=== PATIENT | male | born 1975 | race Caucasian/White ===

== ENCOUNTER 2016-06-30 00:15 | Emergency (ER) | payer BC, OTHER ==
[~2016-06-30] VITALS: Ht 177.8 cm; Wt 81.7 kg
[2016-06-30 00:36] LABS: URINE BILIRUBIN NEGATIVE (Negative); URINE BLOOD NEGATIVE (Negative); URINE COLOR YELLOW; URINE GLUCOSE-RANDOM* NEGATIVE (Negative); URINE KETONES TRACE (Negative); URINE LEUKOCYTES-REFLEX NEGATIVE (Negative); URINE PROTEIN (DIPSTICK) NEGATIVE (Negative); URINE SPECIFIC GRAVITY >= 1.030 (1.003-1.035); URINE UROBILINOGEN 0.2 E.U./dl (0.2-1.0)
[2016-06-30 00:38] LABS: ABSOLUTE NEUTROPHILS 9.4 thou/uL (1.4-8.2); BASOPHILS 0.2 % (0.0-2.0); EOSINOPHILS 0.7 % (0.0-3.0); HEMOGLOBIN 14.1 gm/dL (14.0-18.0); LYMPHOCYTES 18.2 % (24.0-44.0); MCH 29.7 pg (26.0-34.0); MCHC 33.7 % (28.0-37.0); MCV 88.2 fL (80.0-100.0); MONOCYTES 7.7 % (1.0-8.0); PLATELET COUNT 251 thou/uL (150-400); POLYS 73.2 % (36.0-66.0); RBC 4.76 mil/uL (4.50-6.00); RDW 13.2 % (10.5-14.5); WBC 12.9 thou/uL (4.0-11.0)
[2016-06-30 00:42] LABS: CALCIUM 9.7 mg/dL (8.5-10.1); CREATININE 0.9 mg/dL (0.6-1.3)
[2016-06-30 00:50] LABS: MANUAL DIFF NO
[2016-06-30 00:51] LABS: ALBUMIN 4.1 g/dL (3.4-5.0); TOTAL BILIRUBIN 0.4 mg/dL (<0.1-1.0)
[2016-06-30] MEDS ORDERED: ZOFRAN ODT4 MG PO (02:04)
[2016-06-30] MEDS ORDERED: NORCO 5-325 TA1 EACH PO (02:04)
[2016-06-30 02:10] VITALS: BP 134/74
== END 2016-06-30 02:15 | disposition home or self-care (01) ==
LOC: ER 00:15
PROVIDERS: Emergency Medicine
DX: K80.50 Calculus of bile duct without cholangitis or cholecystitis without obstruction (principal); Z88.0 Allergy status to penicillin; F10.99 Alcohol use, unspecified with unspecified alcohol-induced disorder